=== PATIENT | male | born 1975 | race African-American/Black ===

== ENCOUNTER 2016-10-28 20:34 | Emergency (ER) | payer OTHER ==
[~2016-10-28] VITALS: Ht 170.2 cm; Wt 99.8 kg
[~2016-10-28 20:34] MED LIST: FLEXERIL PO; LISINOPRIL-HCT1 EACH PO; NAPROSYN500 MG PO; NOHOMEMEDICATIONS
[2016-10-28 20:37] VITALS: BP 176/109
[2016-10-28] MEDS ORDERED: AMOXICILLIN 50500 MG PO (21:22)
[2016-10-28] MEDS ORDERED: LISINOPRIL10 MG PO (21:22)
[2016-10-28] MEDS ORDERED: IBUPROFEN 800800 M1 PO (21:22)
== END 2016-10-28 21:47 | disposition home or self-care (01) ==
LOC: ER 20:34
DX: B34.9 Viral infection, unspecified (principal); K08.89 Other specified disorders of teeth and supporting structures; M79.1 Myalgia; R11.0 Nausea; R19.7 Diarrhea, unspecified; R51 Headache

== ENCOUNTER 2019-03-09 21:30 | Emergency (ER) | payer OTHER ==
[~2019-03-09] VITALS: Ht 170.2 cm; Wt 99.8 kg
[~2019-03-09 21:30] MED LIST changes: +AMOXICILLIN 50500 MG PO; +CLONIDINE0.1 PO; +IBUPROFEN 800800 M1 PO; +LISINOPRIL10 MG PO; +MOBIC15 MG PO
[2019-03-09] MEDS ORDERED: LISINOPRIL20 MG PO (22:31)
[2019-03-09] MEDS ORDERED: HYDROCHLOROTHIA25 M2 PO (22:32)
[2019-03-10 00:05] VITALS: BP 122/78
== END 2019-03-10 00:30 | disposition left against medical advice (07) ==
LOC: ER 21:30
DX: J02.0 Streptococcal pharyngitis (principal); I10 Essential (primary) hypertension

== ENCOUNTER → 2021-09-02 | Outpatient (CLI) | payer OTHER ==
[~2021-09-02] MED LIST changes: +HYDROCHLOROTHIA25 M2 PO; +LISINOPRIL20 MG PO
== END ==
LOC: RAD 15:20
PROVIDERS: ATTEND Nurse Practitioner
DX: M53.82 Other specified dorsopathies, cervical region (principal); M54.12 Radiculopathy, cervical region